=== PATIENT | female | born 2000 | race Caucasian/White ===

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

== ENCOUNTER 2020-02-28 14:47 | Emergency (ER) | payer MEDICAID ==
[2020-02-28 15:08] VITALS: BP 124/71
--- NOTE | 2020-02-28 15:31 | ER Document Report ---
HPI - HPI Time Seen by Provider: 02/28/20 15:22 Pain Level: 3 Context: Patient is a 19-year-old female who presents emergency department with a chief complaint of head pain to her occipital area of her head and a sharp pain to her left upper ear area. She states that 2 nights ago she threw her head back and hit her head hard on her bed. She states that she has not felt well since. She has not vomited. She took 1 dose of Tylenol, but continued to have pain. - ROS Systems Reviewed and Negative: Yes All other systems reviewed and negative - CONSTITUTIONAL Constitutional: DENIES: Fever, Chills - NEURO Neurology: REPORTS: Headache - REPRODUCTIVE LMP: 02/14/20 Reproductive: DENIES: : - DERM Skin Color: Normal Skin Problems: None Past Medical History - General Information source: Patient - Social History Smoking Status: Former Smoker Chew tobacco use (# tins/day): No Frequency of alcohol use: None Drug Abuse: None Family History: Reviewed & Not Pertinent Patient has homicidal ideation: No Psychiatric Medical History: Reports: Hx Depression - anxiety Vertical Provider Document - CONSTITUTIONAL Agree With Documented VS: Yes Exam Limitations: No Limitations General Appearance: No Apparent Distress - INFECTION CONTROL TRAVEL OUTSIDE OF THE [place] IN LAST 30 DAYS: No - HEENT HEENT: Atraumatic, Normocephalic, PERRLA - NECK Neck: Normal Inspection - RESPIRATORY Respiratory: Breath Sounds Normal, No Respiratory Distress - CARDIOVASCULAR Cardiovascular: Regular Rate, Regular Rhythm Pulses: Normal: Radial - MUSCULOSKELETAL/EXTREMETIES Musculoskeletal/Extremeties: FROM - NEURO Level of Consciousness: Awake, Alert, Appropriate - DERM Integumentary: Warm, Dry, No Rash Course - Re-evaluation Re-evalutation: 02/28/[address] [place] [address] rule does not recommend any imaging at this time. Patient has not had any vomiting. This was not a high impact head injury. Patient's mask was also a little bit tight in the area that she was having pain that is where her mask goes over her left ear. Advised patient take Tylenol and ibuprofen. She is in agreement with this plan. Have a low suspicion for any life- threatening etiology at this time. Follow-up precautions were given. Verbal discharge instructions were given to the patient. They verbalized understanding. They are stable for discharge. - Vital Signs Vital signs: Temp Pulse Resp BP Pulse Ox 97.7 F 59 L 18 124/71 99 02/28/20 15:07 02/28/20 15:07 02/28/20 15:07 02/28/20 15:07 02/28/20 15:07 Discharge - Discharge Clinical Impression: Head trauma Qualifiers: Encounter type: initial encounter Qualified Code(s): S09.90XA - Unspecified injury of head, initial encounter Condition: Stable Disposition: HOME, SELF-CARE Additional Instructions: You are seen today in the emergency department after hitting your head. Your exam is very reassuring. Take ibuprofen 600 mg and acetaminophen 1000 mg every 6 hours for your pain. As discussed, loosen your mask to help you with the pain around her ear. Follow-up with your primary care provider as needed. Referrals: ESTEPHANIE AMARO NP [NURSE PRACTITIONER] - Follow up as needed
== END 2020-02-28 15:38 | disposition home or self-care (01) ==
LOC: ER 14:47
DX: S09.90XA Unspecified injury of head, initial encounter (principal); H92.02 Otalgia, left ear; W22.09XA Striking against other stationary object, initial encounter
CPT/HCPCS: 99282